=== PATIENT | female | born 1990 | race Caucasian/White ===

== ENCOUNTER 2017-04-12 07:47 | Emergency (ER) | payer OTHER ==
[~2017-04-12] VITALS: Ht 154.9 cm; Wt 54.4 kg
[2017-04-12 08:00] VITALS: BP 116/75; Ht 154.9 cm; Wt 54.4 kg
== END 2017-04-12 11:25 | disposition home or self-care (01) ==
LOC: ED 07:47
DX: R10.9 Unspecified abdominal pain (principal); J06.9 Acute upper respiratory infection, unspecified; Z88.6 Allergy status to analgesic agent
CPT/HCPCS: J0780

== ENCOUNTER → 2017-06-03 | Outpatient (CLI) | payer OTHER | END | disposition home or self-care (01) | LOC: MI 16:15 | PROC: BR30ZZZ Magnetic Resonance Imaging (MRI) of Cervical Spine (ICD-10-PCS; principal; 2017-06-03) | DX: M79.2 Neuralgia and neuritis, unspecified (principal) ==